=== PATIENT | female | born 1975 | race Caucasian/White ===

== ENCOUNTER 2021-01-17 22:00 | Emergency (ER) | payer OTHER ==
[~2021-01-17] VITALS: Ht 177.8 cm; Wt 100.0 kg
[2021-01-17] MEDS ORDERED: ketorolac trometh inj. 60 MG/2 ML VIAL IM ONE (22:35)
[2021-01-17] MEDS ORDERED: HYDROcodone/acetaminophen 5mg/325mg tablet PO ONE (22:35)
[2021-01-17] MEDS ORDERED: HYDR-3965 PO (23:20)
[2021-01-17 23:27] VITALS: BP 112/82
--- NOTE | 2021-01-17 23:35 | NUR ---
[facility] called for pt they will be here in 30 min
== END 2021-01-18 00:06 | disposition home or self-care (01) ==
LOC: ER 22:01
DX: S42.021A Displaced fracture of shaft of right clavicle, initial encounter for closed fracture (principal); S22.31XA Fracture of one rib, right side, initial encounter for closed fracture; M25.532 Pain in left wrist; R07.89 Other chest pain; Z79.899 Other long term (current) drug therapy; W18.39XA Other fall on same level, initial encounter; Y93.89 Activity, other specified; Y92.89 Other specified places as the place of occurrence of the external cause; Y99.8 Other external cause status
CPT/HCPCS: 71101; 73000; 73030; 73110; 96372; 99284; J1885